=== PATIENT | male | born 1965 | race Caucasian/White ===

== ENCOUNTER 2020-02-16 12:28 | Emergency (ER) | payer OTHER ==
[~2020-02-16] VITALS: Ht 165.1 cm; Wt 95.3 kg
[2020-02-16] MEDS ORDERED: SODIUM CHLORIDE FLUSH 10ML SYR IVF ONE (13:00)
[2020-02-16] MEDS ORDERED: ALBUTEROL/IPRATROPIUM 2.5MG/0.5MG, 3 ML NPPB ONE ×2 (13:00→13:30)
--- NOTE | 2020-02-16 13:04 | NUR ---
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
[2020-02-16] MEDS ORDERED: ALBUTEROL/IPRATROPIUM 2.5MG/0.5MG, 3 ML ONE (13:12)
--- NOTE | 2020-02-16 13:17 | NUR ---
RT IN AT THIS TIME FOR ASSESSMENT AND TX.
[2020-02-16 13:22] LABS: BASOPHILS # (AUTO) 0.06 x10^3/uL (0-0.1); BASOPHILS % (AUTO) 1 % (0-1); EOSINOPHILS # (AUTO) 0.38 x10^3/uL (0-0.4); EOSINOPHILS % (AUTO) 5 % (1-7); LYMPHOCYTES # (AUTO) 1.48 x10^3/uL (1-3.4); LYMPHOCYTES % (AUTO) 20 % (22-44); MD NO; MEAN CORPUSCULAR HEMOGLOBIN 33.2 pg (27.5-34.5); MEAN CORPUSCULAR HGB CONC 33.9 g/dL (33.2-36.2); MEAN CORPUSCULAR VOLUME 97.9 fL (81-97); MEAN PLATELET VOLUME 8.2 fL (7.4-10.4); MONOCYTES # (AUTO) 0.54 x10^3/uL (0.2-0.8); MONOCYTES % (AUTO) 7 % (2-9); NEUTROPHILS # (AUTO) 5.05 x10^3/uL (1.8-6.8); NEUTROPHILS % (AUTO) 67 % (42-75); PLATELET COUNT 255 x10^3/uL (130-400); RED CELL DISTRIBUTION WIDTH 12.8 % (9.4-14.8)
[2020-02-16 13:33] LABS: ALANINE AMINOTRANSFERASE 25 U/L (12-78); ALBUMIN 3.8 g/dL (3.4-5.0); ANION GAP 7 mmol/L (5-15); CALCIUM 9.1 mg/dL (8.5-10.1); CHLORIDE 104 mmol/L (98-107); CREATININE 1.39 mg/dL (0.7-1.3)
--- NOTE | 2020-02-16 13:33 | NUR ---
PT received breathing tx by RT vss bp up to 184/127
[2020-02-16 13:37] LABS: ALKALINE PHOSPHATASE 53 U/L (45-117); BILIRUBIN,TOTAL 0.3 mg/dL (0.2-1.0); TOTAL PROTEIN 8.5 g/dL (6.4-8.2); TROPONIN I < 0.015 ng/mL (0.000-0.045)
[2020-02-16 13:38] LABS: RAPID INFLUENZA A Negative (Negative); RAPID INFLUENZA B Negative (Negative)
[2020-02-16] MEDS ORDERED: SODIUM CHLORIDE 0.9% 1,000ML IVBOLUS ONE (14:00)
[2020-02-16] MEDS ORDERED: LABETALOL 5MG/ML, 20ML IVPush ONE (14:00)
[2020-02-16] MEDS ORDERED: LABETALOL 5MG/ML, 20ML ONE (14:04)
--- NOTE | 2020-02-16 15:27 | NUR ---
AMBULATED PT IN HALLWAY ABOUT 100FT. PT O2 SAT 94-95% ON RA, HR 68-81. PT STATED HE FELT SOB AFTER AMBULATING. PT BACK IN BED, PLACED BACK ON MONITORS. WILL INFORM ERP ABOUT ROAD TEST.
[2020-02-16] MEDS ORDERED: hydrALAzine 20 MG/ML, 1ML IV ONE (15:30)
[2020-02-16] MEDS ORDERED: hydrALAzine 20 MG/ML, 1ML ONE (15:32)
[2020-02-16 16:18] VITALS: BP 139/87
== END 2020-02-16 17:10 | disposition home or self-care (01) ==
LOC: ED 13:25
DX: R06.00 Dyspnea, unspecified (principal); Z20.828 Contact with and (suspected) exposure to other viral communicable diseases; R00.0 Tachycardia, unspecified; I10 Essential (primary) hypertension; J44.9 Chronic obstructive pulmonary disease, unspecified; M10.9 Gout, unspecified; Z87.891 Personal history of nicotine dependence
CPT/HCPCS: 36415; 71045; 80053; 84484; 85025; 85379; 87400; 87486; 87581; 87633; 87798; 93005; 94640; 96374; 96375; 99285; J0360; J7030

== ENCOUNTER 2021-02-22 13:24 | Emergency (ER) | payer MEDICAID ==
[~2021-02-22] VITALS: Ht 167.6 cm; Wt 94.8 kg
--- NOTE | 2021-02-22 13:54 | NUR ---
PT WITH C/O INCREASING SOB AND FATIGUE OVER PAST YEAR BUT GETTING WORSE OVER PAST 3 MONTHS. PT PRESENTS WITH RESP RATE 24 AND SAT 94%. PT IS ABLE TO ANSWER QUESTIONS AND SPEAK IN FULL SENTENCES BUT APPEARS UNCOMFORTABLE. NO USE OF ACCESSORY BREATHING MUSCLES NOTED. BP IS ELEVATED AND PT DENIES ANY BP MEDICATIONS. DENEIS C/P AT THIS TIME. AT BEDSIDE. ALL MONITORS PLACED AND CALL LIGHT W/I REACH. ER PROVIDER EVAL PENDING.
[2021-02-22] MEDS ORDERED: OMEP-110 PO (13:58)
[2021-02-22 14:51] LABS: BASOPHILS % (AUTO) 1 % (0-1); EOSINOPHILS % (AUTO) 3 % (1-7); LYMPHOCYTES % (AUTO) 22 % (22-44); MD NO; MEAN CORPUSCULAR HEMOGLOBIN 33.9 pg (27.5-34.5); MEAN CORPUSCULAR HGB CONC 34.1 g/dL (33.2-36.2); MEAN PLATELET VOLUME 8.4 fL (7.4-10.4); MONOCYTES % (AUTO) 7 % (2-9); NEUTROPHILS % (AUTO) 67 % (42-75); PLATELET COUNT 234 x10^3/uL (130-400); RED BLOOD COUNT 4.74 x10^6/uL (4.38-5.82); RED CELL DISTRIBUTION WIDTH 13.1 % (9.4-14.8)
[2021-02-22 14:57] LABS: ALANINE AMINOTRANSFERASE 43 U/L (12-78); ALBUMIN 3.2 g/dL (3.4-5.0); ANION GAP 6 mmol/L (5-15); CALCIUM 8.7 mg/dL (8.5-10.1); CHLORIDE 109 mmol/L (98-107); CREATININE 1.26 mg/dL (0.7-1.3)
[2021-02-22 15:01] LABS: ALKALINE PHOSPHATASE 59 U/L (45-117); BILIRUBIN,TOTAL 0.5 mg/dL (0.2-1.0); TROPONIN I 0.026 ng/mL (0.000-0.045)
[2021-02-22 15:18] VITALS: BP 164/111
== END 2021-02-22 16:19 | disposition home or self-care (01) ==
LOC: ED 16:00
DX: I11.0 Hypertensive heart disease with heart failure (principal); I50.9 Heart failure, unspecified; R73.9 Hyperglycemia, unspecified; R06.00 Dyspnea, unspecified; R00.0 Tachycardia, unspecified; R07.89 Other chest pain; M10.9 Gout, unspecified; J44.9 Chronic obstructive pulmonary disease, unspecified; Z87.891 Personal history of nicotine dependence
CPT/HCPCS: 36415; 71045; 80053; 83880; 84484; 85025; 93005; 99285

== ENCOUNTER 2021-02-27 08:26 | Observation (INO) | payer MEDICAID ==
[~2021-02-27] VITALS: Ht 167.6 cm; Wt 91.5 kg
[~2021-02-27 08:26] MED LIST: OMEP-110 PO
--- NOTE | 2021-02-27 08:34 | NUR ---
EKG IN TRIAGE.
--- NOTE | 2021-02-27 08:40 | NUR ---
PT brought back from triage with chief complaint of sob, dizzy, and feeling poor for few days. PT seen here 4 days ago- dx CHF. PT states given bp meds but they arent working.
--- NOTE | 2021-02-27 08:46 | NUR ---
ERMD AT BEDSIDE FOR EVALUATION
[2021-02-27] MEDS ORDERED: NITROGLYCERIN OINT 2%, 1GM TP ONE ×2 (08:51→09:00)
[2021-02-27] MEDS ORDERED: NITROGLYCERIN SINGLE TAB 0.4 MG SL ONE (08:51)
[2021-02-27] MEDS ORDERED: ASPIRIN 81 MG TABLET CHEW ONE (08:52)
[2021-02-27] MEDS ORDERED: SODIUM CHLORIDE FLUSH 10ML SYR IVF ONE (09:00)
[2021-02-27] MEDS ORDERED: ASPIRIN 81 MG TABLET CHEW PO ONE (09:00)
[2021-02-27] MEDS ORDERED: NITROGLYCERIN SINGLE TAB 0.4 MG SL PRN (09:00)
--- NOTE | 2021-02-27 09:00 | NUR ---
Report to Jonh Javier
--- NOTE | 2021-02-27 09:00 | NUR ---
REPORT FROM VANDANA KINCAID NO ABNORMALITIES WITH ASSESSMENT- CHEST PAIN/SOB/IMPROVED TO 0/10
[2021-02-27 09:11] LABS: BASOPHILS % (AUTO) 1 % (0-1); EOSINOPHILS % (AUTO) 3 % (1-7); LYMPHOCYTES % (AUTO) 21 % (22-44); MEAN CORPUSCULAR HEMOGLOBIN 33.2 pg (27.5-34.5); MEAN CORPUSCULAR HGB CONC 33.8 g/dL (33.2-36.2); MEAN PLATELET VOLUME 8.1 fL (7.4-10.4); MONOCYTES % (AUTO) 11 % (2-9); NEUTROPHILS % (AUTO) 65 % (42-75); PLATELET COUNT 277 x10^3/uL (130-400); RED BLOOD COUNT 5.32 x10^6/uL (4.38-5.82); RED CELL DISTRIBUTION WIDTH 12.9 % (9.4-14.8)
[2021-02-27 09:15] LABS: MD NO
[2021-02-27 09:21] LABS: ALBUMIN 3.7 g/dL (3.4-5.0); ANION GAP 8 mmol/L (5-15); CALCIUM 9.3 mg/dL (8.5-10.1); CHLORIDE 104 mmol/L (98-107); CREATININE 1.25 mg/dL (0.7-1.3)
[2021-02-27 09:25] LABS: TROPONIN I 0.015 ng/mL (0.000-0.045)
[2021-02-27] MEDS ORDERED: ENALAPRILAT 1.25 MG/ML, 2ML IV ONE (09:30)
[2021-02-27] MEDS ORDERED: METOPROLOL TARTRATE 50 MG TAB PO ONE (10:00)
[2021-02-27] MEDS ORDERED: IBUPROFEN 600 MG TABLET ONE (10:14)
[2021-02-27] MEDS ORDERED: ENALAPRILAT 1.25 MG/ML, 1ML ONE (10:14)
--- NOTE | 2021-02-27 10:27 | NUR ---
MEDICATED PER EMAR FOR CONTINUED ELEVATED B/P AND RIGHT TOE PAIN "I GOT GOUT AGAIN." ERP WOULD LONLY LIKE VASOTECH. TO ADMIN METOPROLOL IF VASOTECH INEFFECTIVE
[2021-02-27] MEDS ORDERED: ONDANSETRON 2MG/ML, 2ML IVPush PRN (10:30)
[2021-02-27] MEDS ORDERED: morphine SULFATE 10 MG/ML, 1ML IVPush PRN (10:30)
[2021-02-27] MEDS ORDERED: MELATONIN 5 MG TABLET PO PRN (10:30)
[2021-02-27] MEDS ORDERED: ENALAPRILAT 1.25 MG/ML, 2ML IVPush PRN (10:30)
[2021-02-27] MEDS ORDERED: hydrALAzine 20 MG/ML, 1ML IVPush PRN (10:30)
[2021-02-27] MEDS ORDERED: ONDANSETRON ODT 4 MG PO PRN (10:30)
[2021-02-27] MEDS ORDERED: IBUPROFEN 600 MG TABLET PO ONE (10:30)
[2021-02-27] MEDS ORDERED: ACETAMINOPHEN 325 MG TABLET PO PRN (10:30)
[2021-02-27] MEDS ORDERED: AMLO-211 PO (10:32)
[2021-02-27] MEDS ORDERED: HYDR25TA6 PO (10:32)
[2021-02-27] MEDS ORDERED: SODIUM CHLORIDE NASAL SPRAY 45ML BOTTLE NAS PRN (11:00)
[2021-02-27 12:42] VITALS: BP 113/68
[2021-02-27] MEDS: LISINOPRIL 10 MG TABLET PO SCH (12:47)
[2021-02-27 13:20] VITALS: BP 113/69
[2021-02-27] MEDS ORDERED: OMEPRAZOLE 20 MG CAPSULE.DR ONE (13:29)
[2021-02-27 15:39] LABS: TROPONIN I < 0.015 ng/mL (0.000-0.045)
[2021-02-27 18:52] VITALS: BP 109/65
[2021-02-27] MEDS ORDERED: OMEPRAZOLE 20 MG CAPSULE.DR PO SCH (21:00)
[2021-02-27 21:30] LABS: TROPONIN I < 0.015 ng/mL (0.000-0.045)
[2021-02-28 01:59] VITALS: BP 142/88
[2021-02-28 05:23] LABS: CHOL/HDL RATIO 3.2; LDL/HDL RATIO 1.5 (0.5-3.0)
[2021-02-28] MEDS ORDERED: OMEPRAZOLE 20 MG CAPSULE.DR PO SCH (06:00)
[2021-02-28 07:18] VITALS: BP 126/82
[2021-02-28] MEDS: LISINOPRIL 10 MG TABLET PO SCH (09:54)
[2021-02-28] MEDS ORDERED: LISI-167 PO (10:19)
== END 2021-02-28 12:15 | disposition home or self-care (01) ==
LOC: ED 09:31 → INTOOBSV 10:02 → 5SO 10:02 → SUATTDRO 10:15 → DCLOUNGE 02-28 12:11
PROVIDERS: ADMIT Hospitalist; ATTEND Hospitalist
DX: I16.0 Hypertensive urgency (principal); I16.9 Hypertensive crisis, unspecified; I11.0 Hypertensive heart disease with heart failure; I50.9 Heart failure, unspecified; I50.1 Left ventricular failure, unspecified; J44.9 Chronic obstructive pulmonary disease, unspecified; K21.9 Gastro-esophageal reflux disease without esophagitis; E66.9 Obesity, unspecified; G56.00 Carpal tunnel syndrome, unspecified upper limb; M10.9 Gout, unspecified; R09.81 Nasal congestion; F10.10 Alcohol abuse, uncomplicated; Z79.899 Other long term (current) drug therapy; Z87.891 Personal history of nicotine dependence; Z91.14 Patient's other noncompliance with medication regimen
CPT/HCPCS: 36415; 71045; 80048; 80061; 82040; 83735; 83880; 84443; 84484; 85025; 93005; 93306; 93356; 96374; 99285; G0378